=== PATIENT | female | born 1965 | race Native Hawaiian/Other Pacific Islander ===

== ENCOUNTER 2017-01-13 18:22 | Observation (INO) | payer OTHER ==
[2017-01-13] VITALS (7 sets, daily range): BP systolic 148–169; BP diastolic 71–97; TEMP 98.1–98.7; Ht 152.4 cm; Wt 134.9 kg
[~2017-01-13] VITALS: Ht 152.4 cm; Wt 134.9 kg
[2017-01-13 18:58] LABS: PLATELET COUNT 326 K/uL (152-353)
[2017-01-13 19:02] LABS: SODIUM 137 mmol/L (136-145)
[2017-01-13 19:17] LABS: PARTIAL THROMBOPLASTIN TIME 22.5 SECONDS (24.5-33.6)
[2017-01-14 00:23] VITALS: BP 142/70; TEMP 98.6
[2017-01-14 04:00] VITALS: BP 123/58; TEMP 98.8
[2017-01-14 07:58] VITALS: BP 109/54; TEMP 98.3
[2017-01-14 12:00] VITALS: BP 116/54; TEMP 98.4
[2017-01-14 16:00] VITALS: BP 122/73; TEMP 98
== END 2017-01-14 16:00 | disposition home or self-care (01) ==
LOC: ED 18:22 → MED/SURG 21:15
PROVIDERS: ADMIT Emergency Medicine
DX: R07.89 Other chest pain (principal); R06.02 Shortness of breath; I10 Essential (primary) hypertension; M15.8 Other polyosteoarthritis; E66.8 Other obesity; R11.2 Nausea with vomiting, unspecified
CPT/HCPCS: 36415; 80053; 82550; 83880; 84484; 85027; 85610; 85730; 86318; 93005; 96367; 96372; 96374; 99220; 99284; G0378; J1650; J2405